=== PATIENT | male | born 1950 | race Caucasian/White ===

== ENCOUNTER 2025-06-01 10:50 | Outpatient (CLI) | payer MEDICARE ==
[2025-06-01 13:18] LABS: #Basophils 0.04 10x3/uL (0.0-0.2); #Eosinophils 0.13 10x3/uL (0.0-0.7); #Monocytes 0.94 10x3/uL (0.11-0.59); #Neutrophils 3.89 10x3/uL (1.40-6.50); %Basophils 0.6 % (0.0-1.0); %Eosinophils 2.0 % (0.0-10.0); %Lymphocytes 21.8 % (21.0-51.0); %Monocytes 14.7 % (0.0-10.0); %Neutrophils 60.7 % (42.0-75.0); Hematocrit 39.0 % (42.0-52.0); Hemoglobin 12.0 g/dL (14.0-18.0); Mean Corpuscular Hemoglobin 31.3 pg (27.0-31.0); Mean Corpuscular Volume 101.6 fL (78.0-98.0); Platelet Count 98 10x3/uL (130-400); Red Blood Cell (RBC) Count 3.84 mill/uL (4.70-6.10); White Blood Cell (WBC) Count 6.41 10x3/uL (4.8-10.8)
[2025-06-01 13:22] LABS: INR-International Normal Ratio 1.2; PTT 30.3 sec (22.9-36.1); Prothrombin Time 15.2 sec (12.0-14.7)
[2025-06-01 13:29] LABS: Anion Gap 18 mmol/L (10-20); BUN (Urea Nitrogen) 62 mg/dL (8.4-25.7); Calc. Creatinine Clearance 0 mL/min (70-130); Calcium 9.5 mg/dL (7.8-10.44); Carbon Dioxide 22 mmol/L (23-31); Chloride 101 mmol/L (98-107); Glucose 185 mg/dL (83-110); Potassium 4.1 mmol/L (3.5-5.1); Sodium 137 mmol/L (136-145)
[2025-06-01 14:30] LABS: Anisocytosis MARKED = >30 cells HPF (0-5); Burr Cells SLIGHT = 2-5 cells HPF (0-1); Macrocytosis MODERATE=16-30 cells HPF (0-5); Ovalocytes SLIGHT = 2-5 cells HPF (0-1); Platelet Adequacy Comment Platelets Decreased; Polychromasia SLIGHT = 2-3 cells HPF (0-2); Schistocytes SLIGHT = 2-5 cells HPF (0-1)
== END 2025-06-01 10:51 | disposition home or self-care (01) ==
LOC: LABBT 10:50
PROVIDERS: ATTEND Surgery
DX: Z01.818 Encounter for other preprocedural examination (principal); N18.6 End stage renal disease
CPT/HCPCS: 71046; 80048; 85025; 85610; 85730; 93005; 93010

== ENCOUNTER 2025-06-03 05:55 | Day surgery (SDC) | payer MEDICARE ==
[2025-06-01 11:31] VITALS: BMI 25.2
[2025-06-03] MEDS ORDERED: fentaNYL PF 100 MCG/2 ML SYRINGE ONE (06:33)
[2025-06-03] MEDS ORDERED: PROPOFOL 20 ML ONE (06:33)
[2025-06-03] MEDS ORDERED: Ondansetron PF 4 MG/2 ML Vial ONE (06:33)
[2025-06-03] MEDS ORDERED: Lidocaine 1% PF 5 ML VIAL ONE (06:33)
[2025-06-03] MEDS ORDERED: Phenylephrine 40 MG/NS 250 ML 250 ML ONE (06:38)
[2025-06-03] MEDS ORDERED: Heparin 5,000 UNITS/ML VIAL ONE (06:41)
[2025-06-03] MEDS ORDERED: Bupivacaine 0.25% HCL 30 ML VIAL ONE (06:41)
[2025-06-03] MEDS ORDERED: Heparin 10,000 UNITS/ 10 ML VIAL ONE (06:41)
[2025-06-03 07:01] LABS: Potassium 3.8 mmol/L (3.5-5.1)
[2025-06-03] MEDS ORDERED: CEFAZOLIN 2 GM VIAL ONE (07:49)
== END 2025-06-03 10:37 | disposition home or self-care (01) ==
LOC: SDC 05:55
PROVIDERS: ATTEND Surgery
PROC: 03180JD Bypass Left Brachial Artery to Upper Arm Vein with Synthetic Substitute, Open Approach (ICD-10-PCS; principal; 2025-06-03)
DX: I12.0 Hypertensive chronic kidney disease with stage 5 chronic kidney disease or end stage renal disease (principal); N18.6 End stage renal disease; Z95.5 Presence of coronary angioplasty implant and graft; Z96.1 Presence of intraocular lens
CPT/HCPCS: 36830; 84132; A6258; C1713; J0169; J0665; J1642; J1644 ×2; J2405; J2704; J2720; J3373